=== PATIENT | male | born 1985 | race Caucasian/White ===

== ENCOUNTER 2024-03-10 21:57 | Emergency (ER) | payer MEDICAID | END 2024-03-10 23:51 | disposition home or self-care (01) | LOC: JD.ED 21:57 | DX: S80.12XA Contusion of left lower leg, initial encounter (principal); Z79.899 Other long term (current) drug therapy; W18.49XA Other slipping, tripping and stumbling without falling, initial encounter | CPT/HCPCS: 73502-26-LT; 73502-LT; 73552-26-LT; 73552-LT; 73562-26-LT; 73562-LT; 73590-26-LT; 73590-LT; 99283 ==